=== PATIENT | male | born 1965 | race African-American/Black ===

== ENCOUNTER 2019-03-16 09:56 | Inpatient (IN) | payer OTHER ==
[2019-03-16 10:18] VITALS: BMI 37.1
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
[2019-03-16] MEDS ORDERED: hydrOXYzine PAMOATE 25 MG CAPSULE (FP) PO PRN (13:29)
[2019-03-16] MEDS ORDERED: BISMUTH SUBSALICYLATE 524 MG/30 ML UD PO PRN (13:29)
[2019-03-16] MEDS ORDERED: IBUPROFEN 400 MG TABLET (FP) PO PRN (13:29)
[2019-03-16] MEDS ORDERED: MENTHOL/PHENOL 1 EACH UD MM PRN (13:29)
[2019-03-16] MEDS ORDERED: MAG HYDROX/AL HYDROX/SIMETH 30 ML UNIT-DOSE CUP PO PRN (13:29)
[2019-03-16] MEDS ORDERED: MAGNESIUM HYDROX 2400MG/30ML ORAL SUSPENSION 30 ML CUP PO PRN (13:29)
[2019-03-16] MEDS ORDERED: METHOCARBAMOL 500 MG TABLET PO PRN (13:29)
[2019-03-16] MEDS ORDERED: MELATONIN 5 MG TABLETS PO PRN (13:29)
[2019-03-16] MEDS ORDERED: ACETAMINOPHEN 325 MG TABLET (FP) PO PRN ×2 (13:29)
[2019-03-16] MEDS ORDERED: MAGNESIUM CITRATE 300 ML BOTTLE PO PRN (13:29)
[2019-03-16] MEDS ORDERED: ALBUTEROL SO4 8 GM HFA INHALER IH PRN (13:38)
[2019-03-16] MEDS: chlordiazePOXIDE HCL 10 MG CAPSULE PO PRN ×2 (14:33→17:03)
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
[2019-03-16 17:01] LABS: HEMOGLOBIN 12.8 GM/dL (11.7-16.9); MCH 33.8 pg (25.7-33.7); MCHC 33.8 g/dl (32.0-35.9); MEAN PLT VOLUME 8.2 fl (7.5-11.1); PLATELET COUNT 243 K/MM3 (134-434); WHITE BLOOD COUNT 5.8 K/mm3 (4.0-10.0)
[2019-03-16] MEDS: metFORMIN HCL 500 MG TABLET (FP) PO SCH (17:03)
[2019-03-16 17:13] LABS: ALBUMIN 3.7 g/dl (3.4-5.0); BILIRUBIN,TOTAL 0.4 mg/dL (0.2-1); BLOOD UREA NITROGEN 10.5 mg/dL (7-18); CREATININE 1.3 mg/dL (0.55-1.3); POTASSIUM 3.7 mmol/L (3.5-5.1); TOT PROT 7.4 g/dl (6.4-8.2)
[2019-03-16] MEDS ORDERED: DIVALPROEX NA *ER* EXTEND REL 500 MG TABLET.SA (FP) PO ONE (21:00)
[2019-03-16] MEDS ORDERED: traZODone HCL 100 MG TABLET (FP) PO ONE (21:00)
[2019-03-16] MEDS: ATORVASTATIN CA 10 MG TABLET (FP) PO SCH (21:12)
[2019-03-16] MEDS: THIAMINE HCL 100 MG TABLET (FP) PO SCH (21:12)
[2019-03-16] MEDS: chlordiazePOXIDE HCL 25 MG CAPSULE PO SCH (21:12)
[2019-03-17] MEDS: chlordiazePOXIDE HCL 10 MG CAPSULE PO PRN (00:34)
[2019-03-17] MEDS: metFORMIN HCL 500 MG TABLET (FP) PO SCH ×2 (06:06→17:41)
[2019-03-17] MEDS: chlordiazePOXIDE HCL 25 MG CAPSULE PO SCH ×3 (06:06→20:57)
[2019-03-17] MEDS: HYDROCHLOROTHIAZIDE 12.5 MG CAPSULE (FP) PO SCH (10:05)
[2019-03-17] MEDS: PRENATAL VITAMINS W/ FOLIC ACID TABLET (FP) PO SCH (10:05)
[2019-03-17] MEDS: ASPIRIN 81 MG CHEWABLE TABLETS PO SCH (10:05)
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
[2019-03-17] MEDS: DIVALPROEX SODIUM 500 MG TABLET E.C. PO SCH (10:56)
--- NOTE | 2019-03-17 13:21 | PN ---
S CIWA - CIWA Score Nausea/Vomitin-No Nausea/No Vomiting Muscle Tremors: None Anxiety: 2 Agitation: 0-Normal Activity Paroxysmal Sweats: 3 Orientation: 0-Oriented Tacttile Disturbances: 0-None Auditory Disturbances: 0-None Visual Disturbances: 0-None Headache: 2-Mild CIWA-Ar Total Score: 7 [facility] Progress Note (SOAP) Subjective: c/o sweats, anxiety, and headache. Objective: 03/17/19 13:22 Vital Signs 03/17/19 03/17/19 06:41 09:18 Temperature 98.0 F 97.5 F L Pulse Rate 96 H 101 H Respiratory 18 20 Rate Blood Pressure 120/79 115/77 Laboratory Last Values WBC 5.8 K/mm3 (4.0-10.0) 03/16/19 14:00 RBC 3.80 M/mm3 (4.00-5.60) L 03/16/19 14:00 Hgb 12.8 GM/dL (11.7-16.9) 03/16/19 14:00 Hct 38.0 % (35.4-49) 03/16/19 14:00 MCV 100.0 fl (80-96) H 03/16/19 14:00 MCH 33.8 pg (25.7-33.7) H 03/16/19 14:00 MCHC 33.8 g/dl (32.0-35.9) 03/16/19 14:00 RDW 15.0 % (11.9-15.9) 03/16/19 14:00 Plt Count 243 K/MM3 (134-434) 03/16/19 14:00 MPV 8.2 fl (7.5-11.1) 03/16/19 14:00 Sodium 133 mmol/L (136-145) L 03/16/19 14:00 Potassium 3.7 mmol/L (3.5-5.1) 03/16/19 14:00 Chloride 98 mmol/L (98-107) 03/16/19 14:00 Carbon Dioxide 25 mmol/L (21-32) 03/16/19 14:00 Anion Gap 10 MMOL/L (8-16) 03/16/19 14:00 BUN 10.5 mg/dL (7-18) 03/16/19 14:00 Creatinine 1.3 mg/dL (0.55-1.3) 03/16/19 14:00 Est GFR (CKD-EPI)AfAm 72.20 03/16/19 14:00 Est GFR (CKD-EPI)NonAf 62.29 03/16/19 14:00 POC Glucometer 189 UNITS (80-120) 03/17/19 06:04 Random Glucose 195 mg/dL (74-106) H 03/16/19 14:00 Calcium 9.0 mg/dL (8.5-10.1) 03/16/19 14:00 Total Bilirubin 0.4 mg/dL (0.2-1) 03/16/19 14:00 AST 24 U/L (15-37) 03/16/19 14:00 ALT 33 U/L (13-61) 03/16/19 14:00 Alkaline Phosphatase 76 U/L (45-117) 03/16/19 14:00 Total Protein 7.4 g/dl (6.4-8.2) 03/16/19 14:00 Albumin 3.7 g/dl (3.4-5.0) 03/16/19 14:00 Valproic Acid 35.1 ug/mL (50-100) L 03/17/19 07:55 RPR Titer Nonreactive (NONREACTIVE) 03/16/19 14:00 HIV 1&2 Antibody Screen Negative 03/16/19 14:05 HIV P24 Antigen Negative 03/16/19 14:05 Labs noted. Assessment: 03/17/19 13:22 AOX3, in no acute respiratory distress. Full ROM, ambulating in the unit. Withdrawal symptoms. Plan: continue detox.
[2019-03-17] MEDS: QUEtiapine FUMARATE 200 MG TABLET PO SCH (22:36)
[2019-03-17] MEDS: THIAMINE HCL 100 MG TABLET (FP) PO SCH (22:36)
[2019-03-17] MEDS: ATORVASTATIN CA 10 MG TABLET (FP) PO SCH (22:36)
[2019-03-17] MEDS: traZODone HCL 100 MG TABLET (FP) PO SCH (22:36)
[2019-03-18] MEDS: chlordiazePOXIDE 5 MG CAPSULE PO SCH ×3 (05:29→21:15)
[2019-03-18] MEDS: metFORMIN HCL 500 MG TABLET (FP) PO SCH ×2 (06:31→17:20)
--- NOTE | 2019-03-18 09:34 | PN ---
[facility] CIWA - CIWA Score Nausea/Vomitin-Mild Nausea/No Vomiting Muscle Tremors: 3 Anxiety: 2 Agitation: 2 Paroxysmal Sweats: 2 Orientation: 1-Uncertain about Date Tacttile Disturbances: 1-Very Mild Itch/Numbness Auditory Disturbances: 0-None Visual Disturbances: 0-None Headache: 1-Very Mild CIWA-Ar Total Score: 13 S Progress Note (SOAP) Subjective: 54 years old male admitted on 03/16/19 for alcohol withdrawal sx management treated with librium detox regimen patient tolerated well tremor sweating trouble sleep at night ate breakfast social with peers in day room Objective: 03/18/19 09:34 Vital Signs Temperature 98 F 03/18/19 06:52 Pulse Rate 86 03/18/19 06:52 Respiratory Rate 20 03/18/19 06:52 Blood Pressure 121/71 03/18/19 06:52 O2 Sat by Pulse Oximetry (%) Laboratory Last Values WBC 5.8 K/mm3 (4.0-10.0) 03/16/19 14:00 RBC 3.80 M/mm3 (4.00-5.60) L 03/16/19 14:00 Hgb 12.8 GM/dL (11.7-16.9) 03/16/19 14:00 Hct 38.0 % (35.4-49) 03/16/19 14:00 MCV 100.0 fl (80-96) H 03/16/19 14:00 MCH 33.8 pg (25.7-33.7) H 03/16/19 14:00 MCHC 33.8 g/dl (32.0-35.9) 03/16/19 14:00 RDW 15.0 % (11.9-15.9) 03/16/19 14:00 Plt Count 243 K/MM3 (134-434) 03/16/19 14:00 MPV 8.2 fl (7.5-11.1) 03/16/19 14:00 Sodium 133 mmol/L (136-145) L 03/16/19 14:00 Potassium 3.7 mmol/L (3.5-5.1) 03/16/19 14:00 Chloride 98 mmol/L (98-107) 03/16/19 14:00 Carbon Dioxide 25 mmol/L (21-32) 03/16/19 14:00 Anion Gap 10 MMOL/L (8-16) 03/16/19 14:00 BUN 10.5 mg/dL (7-18) 03/16/19 14:00 Creatinine 1.3 mg/dL (0.55-1.3) 03/16/19 14:00 Est GFR (CKD-EPI)AfAm 72.20 03/16/19 14:00 Est GFR (CKD-EPI)NonAf 62.29 03/16/19 14:00 POC Glucometer 216 UNITS (80-120) 03/18/19 05:28 Random Glucose 195 mg/dL (74-106) H 03/16/19 14:00 Calcium 9.0 mg/dL (8.5-10.1) 03/16/19 14:00 Total Bilirubin 0.4 mg/dL (0.2-1) 03/16/19 14:00 AST 24 U/L (15-37) 03/16/19 14:00 ALT 33 U/L (13-61) 03/16/19 14:00 Alkaline Phosphatase 76 U/L (45-117) 03/16/19 14:00 Total Protein 7.4 g/dl (6.4-8.2) 03/16/19 14:00 Albumin 3.7 g/dl (3.4-5.0) 03/16/19 14:00 Valproic Acid 35.1 ug/mL (50-100) L 03/17/19 07:55 RPR Titer Nonreactive (NONREACTIVE) 03/16/19 14:00 HIV 1&2 Antibody Screen Negative 03/16/19 14:05 HIV P24 Antigen Negative 03/16/19 14:05 lab noted Assessment: 03/18/19 09:34 alcohol withdrawal sx Plan: continue librium detox regimen
[2019-03-18] MEDS: DIVALPROEX SODIUM 500 MG TABLET E.C. PO SCH (10:10)
[2019-03-18] MEDS: HYDROCHLOROTHIAZIDE 12.5 MG CAPSULE (FP) PO SCH (10:10)
[2019-03-18] MEDS: PRENATAL VITAMINS W/ FOLIC ACID TABLET (FP) PO SCH (10:10)
[2019-03-18] MEDS: ASPIRIN 81 MG CHEWABLE TABLETS PO SCH (10:10)
[2019-03-18] MEDS: chlordiazePOXIDE HCL 10 MG CAPSULE PO PRN (17:44)
[2019-03-18] MEDS: ATORVASTATIN CA 10 MG TABLET (FP) PO SCH (21:15)
[2019-03-18] MEDS: THIAMINE HCL 100 MG TABLET (FP) PO SCH (21:15)
[2019-03-18] MEDS: traZODone HCL 100 MG TABLET (FP) PO SCH (21:15)
[2019-03-18] MEDS: QUEtiapine FUMARATE 200 MG TABLET PO SCH (21:15)
[2019-03-19] MEDS: chlordiazePOXIDE HCL 10 MG CAPSULE PO PRN ×2 (00:53→20:05)
[2019-03-19] MEDS: chlordiazePOXIDE HCL 10 MG CAPSULE PO SCH ×3 (05:34→21:09)
[2019-03-19] MEDS: metFORMIN HCL 500 MG TABLET (FP) PO SCH ×2 (07:06→17:03)
[2019-03-19] MEDS: ASPIRIN 81 MG CHEWABLE TABLETS PO SCH (10:10)
[2019-03-19] MEDS: HYDROCHLOROTHIAZIDE 12.5 MG CAPSULE (FP) PO SCH (10:10)
[2019-03-19] MEDS: DIVALPROEX SODIUM 500 MG TABLET E.C. PO SCH (10:10)
[2019-03-19] MEDS: PRENATAL VITAMINS W/ FOLIC ACID TABLET (FP) PO SCH (10:10)
--- NOTE | 2019-03-19 12:09 | PN ---
[facility] CIWA - CIWA Score Nausea/Vomitin-Mild Nausea/No Vomiting Muscle Tremors: 2 Anxiety: 2 Agitation: 2 Paroxysmal Sweats: 1-Minimal Palms Moist Orientation: 0-Oriented Tacttile Disturbances: 0-None Auditory Disturbances: 0-None Visual Disturbances: 0-None Headache: 0-None Present CIWA-Ar Total Score: 8 S Progress Note (SOAP) Subjective: 54 years old male admitted on 03/16/19 for alcohol withdrawal sx management treated with librium detox regimen feeling better less tremor mild anxiety Objective: 03/19/19 12:08 Vital Signs Temperature 97.5 F L 03/19/19 09:18 Pulse Rate 97 H 03/19/19 09:18 Respiratory Rate 20 03/19/19 09:18 Blood Pressure 131/83 03/19/19 09:18 O2 Sat by Pulse Oximetry (%) Laboratory Last Values WBC 5.8 K/mm3 (4.0-10.0) 03/16/19 14:00 RBC 3.80 M/mm3 (4.00-5.60) L 03/16/19 14:00 Hgb 12.8 GM/dL (11.7-16.9) 03/16/19 14:00 Hct 38.0 % (35.4-49) 03/16/19 14:00 MCV 100.0 fl (80-96) H 03/16/19 14:00 MCH 33.8 pg (25.7-33.7) H 03/16/19 14:00 MCHC 33.8 g/dl (32.0-35.9) 03/16/19 14:00 RDW 15.0 % (11.9-15.9) 03/16/19 14:00 Plt Count 243 K/MM3 (134-434) 03/16/19 14:00 MPV 8.2 fl (7.5-11.1) 03/16/19 14:00 Sodium 133 mmol/L (136-145) L 03/16/19 14:00 Potassium 3.7 mmol/L (3.5-5.1) 03/16/19 14:00 Chloride 98 mmol/L (98-107) 03/16/19 14:00 Carbon Dioxide 25 mmol/L (21-32) 03/16/19 14:00 Anion Gap 10 MMOL/L (8-16) 03/16/19 14:00 BUN 10.5 mg/dL (7-18) 03/16/19 14:00 Creatinine 1.3 mg/dL (0.55-1.3) 03/16/19 14:00 Est GFR (CKD-EPI)AfAm 72.20 03/16/19 14:00 Est GFR (CKD-EPI)NonAf 62.29 03/16/19 14:00 POC Glucometer 278 UNITS (80-120) 03/19/19 08:19 Random Glucose 195 mg/dL (74-106) H 03/16/19 14:00 Calcium 9.0 mg/dL (8.5-10.1) 03/16/19 14:00 Total Bilirubin 0.4 mg/dL (0.2-1) 03/16/19 14:00 AST 24 U/L (15-37) 03/16/19 14:00 ALT 33 U/L (13-61) 03/16/19 14:00 Alkaline Phosphatase 76 U/L (45-117) 03/16/19 14:00 Total Protein 7.4 g/dl (6.4-8.2) 03/16/19 14:00 Albumin 3.7 g/dl (3.4-5.0) 03/16/19 14:00 Valproic Acid 35.1 ug/mL (50-100) L 03/17/19 07:55 RPR Titer Nonreactive (NONREACTIVE) 03/16/19 14:00 HIV 1&2 Antibody Screen Negative 03/16/19 14:05 HIV P24 Antigen Negative 03/16/19 14:05 lab noted 03/19/19 12:08 long history of diabetes Assessment: 03/19/19 12:08 alcohol withdrawal sx Plan: continue librium detox regimen
--- NOTE | 2019-03-19 13:32 | PN ---
[facility] Progress Note Note: Psychiatry Attending's note (follow-up): Approached by the patient. " I want my daytime seroquel dose ". Patient gets anxious about missing daily dose. Intervention : Seroquel 50 mg po daily (first dose stat). Discussed with nurse.
[2019-03-19] MEDS: QUEtiapine FUMARATE 50 MG TABLET PO SCH (13:48)
[2019-03-19] MEDS: QUEtiapine FUMARATE 200 MG TABLET PO SCH (21:09)
[2019-03-19] MEDS: traZODone HCL 100 MG TABLET (FP) PO SCH (21:09)
[2019-03-19] MEDS: THIAMINE HCL 100 MG TABLET (FP) PO SCH (21:09)
[2019-03-19] MEDS: ATORVASTATIN CA 10 MG TABLET (FP) PO SCH (21:09)
[2019-03-20] MEDS ORDERED: chlordiazePOXIDE HCL 10 MG CAPSULE PO ONE (05:00)
[2019-03-20] MEDS: metFORMIN HCL 500 MG TABLET (FP) PO SCH (06:56)
[2019-03-20 09:20] VITALS: BP 101/56; PULSE 70; TEMP 96.8
[2019-03-20] MEDS: QUEtiapine FUMARATE 50 MG TABLET PO SCH (09:20)
[2019-03-20] MEDS: DIVALPROEX SODIUM 500 MG TABLET E.C. PO SCH (09:20)
[2019-03-20] MEDS: ASPIRIN 81 MG CHEWABLE TABLETS PO SCH (09:20)
[2019-03-20] MEDS: HYDROCHLOROTHIAZIDE 12.5 MG CAPSULE (FP) PO SCH (09:21)
[2019-03-20] MEDS: PRENATAL VITAMINS W/ FOLIC ACID TABLET (FP) PO SCH (09:21)
--- NOTE | 2019-03-20 12:39 | DS ---
[facility] Detox Discharge Summary Admission Date: 03/16/19 Discharge Date: 03/20/19 - History Present History: Alcohol Dependence Additional Comments: 54 years old male admitted on 03/16/19 for alcohol withdrawal sx management treated with librium detox regimen patient is alert oriented x 3 respiratory clear lung bilaterally on auscultation skin warm and dry abdomen soft round obese no rebound tenderness - Physical Exam Results Vital Signs: Vital Signs Temperature 96.8 F L 03/20/19 09:19 Pulse Rate 70 03/20/19 09:19 Respiratory Rate 20 03/20/19 09:19 Blood Pressure 101/56 L 03/20/19 09:19 O2 Sat by Pulse Oximetry (%) Pertinent Admission Physical Exam Findings: alcohol withdrawal sx Laboratory Last Values WBC 5.8 K/mm3 (4.0-10.0) 03/16/19 14:00 RBC 3.80 M/mm3 (4.00-5.60) L 03/16/19 14:00 Hgb 12.8 GM/dL (11.7-16.9) 03/16/19 14:00 Hct 38.0 % (35.4-49) 03/16/19 14:00 MCV 100.0 fl (80-96) H 03/16/19 14:00 MCH 33.8 pg (25.7-33.7) H 03/16/19 14:00 MCHC 33.8 g/dl (32.0-35.9) 03/16/19 14:00 RDW 15.0 % (11.9-15.9) 03/16/19 14:00 Plt Count 243 K/MM3 (134-434) 03/16/19 14:00 MPV 8.2 fl (7.5-11.1) 03/16/19 14:00 Sodium 133 mmol/L (136-145) L 03/16/19 14:00 Potassium 3.7 mmol/L (3.5-5.1) 03/16/19 14:00 Chloride 98 mmol/L (98-107) 03/16/19 14:00 Carbon Dioxide 25 mmol/L (21-32) 03/16/19 14:00 Anion Gap 10 MMOL/L (8-16) 03/16/19 14:00 BUN 10.5 mg/dL (7-18) 03/16/19 14:00 Creatinine 1.3 mg/dL (0.55-1.3) 03/16/19 14:00 Est GFR (CKD-EPI)AfAm 72.20 03/16/19 14:00 Est GFR (CKD-EPI)NonAf 62.29 03/16/19 14:00 POC Glucometer 284 UNITS (80-120) 03/20/19 05:24 Random Glucose 195 mg/dL (74-106) H 03/16/19 14:00 Calcium 9.0 mg/dL (8.5-10.1) 03/16/19 14:00 Total Bilirubin 0.4 mg/dL (0.2-1) 03/16/19 14:00 AST 24 U/L (15-37) 03/16/19 14:00 ALT 33 U/L (13-61) 03/16/19 14:00 Alkaline Phosphatase 76 U/L (45-117) 03/16/19 14:00 Total Protein 7.4 g/dl (6.4-8.2) 03/16/19 14:00 Albumin 3.7 g/dl (3.4-5.0) 03/16/19 14:00 Valproic Acid 35.1 ug/mL (50-100) L 03/17/19 07:55 RPR Titer Nonreactive (NONREACTIVE) 03/16/19 14:00 HIV 1&2 Antibody Screen Negative 03/16/19 14:05 HIV P24 Antigen Negative 03/16/19 14:05 lab noted - Treatment Hospital Course: Detox Protocol Followed, Detoxed Safely, Responded well, Discharged Condition Good, Rehab Referral Accepted Patient has Accepted a Rehab Referral to: [facility] out patient - Medication Discharge Medications: Ambulatory Orders traZODone HCL [Desyrel -] 100 mg PO HS 12/06/12 Quetiapine Fumarate "Xr" [Seroquel XR] 200 mg PO HS #30 tablet 02/20/14 Quetiapine Fumarate [Seroquel -] 100 mg PO DAILY #30 tab 02/20/14 Albuterol Sulfate Inhaler - [Ventolin HFA Inhaler -] 2 inh PO Q4H PRN #1 inh metFORMIN HCL [Glucophage -] 500 mg PO BID #30 tablet 02/22/14 Aspirin [ASA -] 81 mg PO DAILY 03/16/19 Divalproex *ER* [Depakote *ER* -] 500 mg PO DAILY 03/16/19 Hydrochlorothiazide [Hctz -] 12.5 mg PO DAILY 03/16/19 Multivitamin [Multiple Vitamins] 1 each PO DAILY 03/16/19 Simvastatin 10 mg PO DAILY 03/16/19 - Diagnosis (1) Alcohol dependence Current Visit: Yes Status: Acute (2) Nicotine dependence Current Visit: Yes Status: Acute Qualifiers: Nicotine product type: cigarettes Substance use status: in withdrawal Qualified Code(s): F17.213 - Nicotine dependence, cigarettes, with withdrawal (3) Asthma Current Visit: Yes Status: Chronic (4) DM Diabetes mellitus type 2 Current Visit: Yes Status: Chronic (5) Hyperlipidemia Current Visit: No Status: Active (6) HIV (human immunodeficiency virus infection) Current Visit: Yes Status: Chronic Qualifiers: HIV symptom status: asymptomatic Qualified Code(s): Z21 - Asymptomatic human immunodeficiency virus [HIV] infection status - AMA Did Patient Leave Against Medical Advice: No CIWA Score - CIWA Score Nausea/Vomitin-No Nausea/No Vomiting Muscle Tremors: 2 Anxiety: 2 Agitation: 1-Slight > Activity Paroxysmal Sweats: No Perspiration Orientation: 0-Oriented Tacttile Disturbances: 0-None Auditory Disturbances: 0-None Visual Disturbances: 0-None Headache: 0-None Present CIWA-Ar Total Score: 5
== END 2019-03-20 09:24 | disposition home or self-care (01) | DRG 774 ==
LOC: YASAS 09:56 → Y3N 14:02
PROVIDERS: ADMIT Allergy & Immunology; ATTEND Allergy & Immunology
PROC: HZ2ZZZZ Detoxification Services for Substance Abuse Treatment (ICD-10-PCS; principal; 2019-03-19)
DX: F10.230 Alcohol dependence with withdrawal, uncomplicated (principal); F14.20 Cocaine dependence, uncomplicated; F17.213 Nicotine dependence, cigarettes, with withdrawal; F25.9 Schizoaffective disorder, unspecified; I10 Essential (primary) hypertension; E11.9 Type 2 diabetes mellitus without complications; J45.909 Unspecified asthma, uncomplicated; Z21 Asymptomatic human immunodeficiency virus [HIV] infection status; E78.5 Hyperlipidemia, unspecified; G47.00 Insomnia, unspecified; E66.9 Obesity, unspecified; Z68.37 Body mass index [BMI] 37.0-37.9, adult; Z79.84 Long term (current) use of oral hypoglycemic drugs; Z91.013 Allergy to seafood; Z88.8 Allergy status to other drugs, medicaments and biological substances
CPT/HCPCS: 36415; 80053; 80164; 82962; 85027; 86593; 87389